=== PATIENT | female | born 1965 | race Caucasian/White ===

== ENCOUNTER 2021-12-05 22:27 | Emergency (ER) | payer SELFPAY ==
[2021-12-06] MEDS ORDERED: BENADRYL 50MG C50 MG PO (00:19)
[2021-12-06] MEDS ORDERED: EPIPEN 2-P0.3 MG/0.3 INJ (00:19)
[2021-12-06] MEDS ORDERED: PEPCID40 MG PO (00:19)
[2021-12-06] MEDS ORDERED: PREDNISONE 50 M50 MG PO (00:19)
== END 2021-12-06 00:35 | disposition home or self-care (01) ==
LOC: ER1 22:27
DX: T63.461A Toxic effect of venom of wasps, accidental (unintentional), initial encounter (principal); J98.01 Acute bronchospasm; F17.210 Nicotine dependence, cigarettes, uncomplicated; Z88.5 Allergy status to narcotic agent; Z91.030 Bee allergy status
CPT/HCPCS: 71045; 94640; 94664; 94760; 96374; 99283